=== PATIENT | female | born 1940 | race Caucasian/White ===

== ENCOUNTER → 2016-11-03 | Day surgery (SDC) | payer MEDICARE, OTHER ==
[~2016-11-03] MED LIST: ASPI-630 PO; ATOR20TA PO; CELE200C PO; ESTR30CR VG; IV RINGERS,LACTATED 1000ML 1,000 ML IV SCH; LIDOCAINE 1% 1 ML SYRINGE. ID PRN; LIDOCAINE 2% PF Vial for OR 5 ML VIAL. ONE; MIDAZOLAM HCL/PF 2 MG/2 ML VIAL. IV PRN; OMEP20TA8 PO; POTA20TA82 PO; PROPOFOL 20 ML IV ONE; VIT1TABL32 PO; fentaNYL PF VIAL 100 MCG/2 ML VIAL IV PRN
[2016-11-03 14:22] VITALS: BP 181/101
--- NOTE | 2016-11-05 00:02 | PATHOLOGY ---
PATHOLOGY REPORT * * * * * * * * FINAL DIAGNOSIS: Esophagus, distal, biopsy: - Hyperplastic squamous epithelium with focal mild chronic inflammation. - No definite columnar epithelium present. (SKM:juancho; 11/04/2016) REPORT ELECTRONICALLY SIGNED BY: Roman Irby M.D. DATE/TIME: 11/04/2016 10:53 * * * * * * * * GROSS PATHOLOGY: Received in formalin labeled "Delvin Brennan, distal esophagus," are multiple segments of estrada soft tissue measuring from 00.2 up to 0.3 cm in maximum dimension. The specimen is submitted entirely in cassette A1. ([facility]; 11/03/16) INITIAL CPT CODE(S): A; 32140 Professional services performed by [facility] [place] [address] Technical services performed by [facility] at [address] [place] [address] [address], [place] [address]. SPECIMEN(S) RECEIVED: A.Distal esophagus CLINICAL HISTORY: GERD PATIENT: DELVIN BRENNAN /AGE: 911/24/1940 (Age: 75) PATIENT #: [id number] ALT CASE #: SPECIMEN COLLECTION DATE: 11/03/2016 SPECIMEN RECEIVED DATE: 11/03/2016 [facility] - [id number] [place] [address] - PHONE: [phone] * * * END OF REPORT * * *
== END | disposition home or self-care (01) ==
LOC: SURG 12:37
PROVIDERS: ATTEND Internal Medicine Gastroenterology
DX: K21.0 Gastro-esophageal reflux disease with esophagitis (principal); K29.50 Unspecified chronic gastritis without bleeding; K44.9 Diaphragmatic hernia without obstruction or gangrene; M19.91 Primary osteoarthritis, unspecified site; Z86.69 Personal history of other diseases of the nervous system and sense organs; Z98.51 Tubal ligation status; Z72.89 Other problems related to lifestyle; Z72.0 Tobacco use; Z88.6 Allergy status to analgesic agent
CPT/HCPCS: 43239; J2704; 88305; J2001